=== PATIENT | male | born 1955 | race Caucasian/White ===

== ENCOUNTER → 2016-10-18 | Outpatient (CLI) | payer MEDICARE, BC | LOC: COL.RAD 13:05 | DX: S46.812A Strain of other muscles, fascia and tendons at shoulder and upper arm level, left arm, initial encounter (principal) ==

== ENCOUNTER → 2019-10-27 | Outpatient (CLI) | payer MEDICARE, BC | LOC: COL.RAD 09:19 | DX: K21.9 Gastro-esophageal reflux disease without esophagitis (principal) ==

== ENCOUNTER 2019-11-12 12:03 | Day surgery (SDC) | payer MEDICARE, BC ==
[~2019-11-12] VITALS: Ht 170.2 cm; Wt 92.8 kg
[2019-11-12] MEDS ORDERED: VASOTEC20 MG (12:46)
[2019-11-12] MEDS ORDERED: NORVASC 10MG10 MG PO (12:46)
[2019-11-12] MEDS ORDERED: PROTONIX 40MG T40 MG PO ×2 (12:46→15:43)
--- NOTE | 2019-11-12 12:47 | NUR ---
TO RM AT 1212- CALL LIGHT IN REACH
--- NOTE | 2019-11-12 12:51 | NUR ---
RECHECK O2 AT 94% ON ROOM AIR. HEART TONES REGULAR AT 83
[2019-11-12 15:15] VITALS: BP 84/46; PULSE 73; TEMP 978; TEMP 98.7
--- NOTE | 2019-11-12 15:15 | NUR ---
TO RM 5 PER CART FROM OR. RECEIVED REPORT FROM OR AND SUPERVISOR [employer]. AWAKENS TO VERBAL STIMULATION AND FALLS BACK TO SLEE. 02 AT 3L PER NC WITH STATS AT 95%. NO SIGNS OF DISTRESS
[2019-11-12 15:20] VITALS: BP 97/61; PULSE 74
--- NOTE | 2019-11-12 15:20 | NUR ---
02 SAT 97% ON 3L MORE AWAKE AND RECEIVED WATER. PATIENT ASKING QUESTIONS ABOUT PROCEDURE AND RESULTS. DR TIMMONS CALLED SISTER
[2019-11-12 15:30] VITALS: BP 119/70; PULSE 72
--- NOTE | 2019-11-12 15:30 | NUR ---
TOLERATED WELL, REFUSED ANYTHING TO EAT AT THIS TIME. PATIENT ASKING WHEN HE CAN GO HOME
[2019-11-12 15:45] VITALS: BP 97/70; PULSE 70
--- NOTE | 2019-11-12 15:45 | NUR ---
NO CHANGES RESTING QUIETLY
[2019-11-12 16:00] VITALS: BP 112/65; PULSE 60
--- NOTE | 2019-11-12 16:15 | NUR ---
RECEIVED DISCHARGE INSTRUCTIONS AND VERBALIZED UNDERSTANDING. DISCONTINUED IV AND INT
--- NOTE | 2019-11-12 16:20 | NUR ---
PATIENT GETTING DRESSED AND SISTER CALLED FOR RIDE HOME
--- NOTE | 2019-11-12 16:35 | NUR ---
DISCHARGED PER WC BY NURSING STAFF TO PRIVATE CAR IN CARE OF SISTER MANNIE.
== END 2019-11-12 16:45 | disposition home or self-care (01) ==
LOC: SDCO 12:03
DX: K21.9 Gastro-esophageal reflux disease without esophagitis (principal); K29.50 Unspecified chronic gastritis without bleeding; K44.9 Diaphragmatic hernia without obstruction or gangrene; J43.9 Emphysema, unspecified; Z79.899 Other long term (current) drug therapy; Z87.891 Personal history of nicotine dependence; I10 Essential (primary) hypertension; F32.9 Major depressive disorder, single episode, unspecified; Z80.42 Family history of malignant neoplasm of prostate; Z80.0 Family history of malignant neoplasm of digestive organs
CPT/HCPCS: J2704; J7120

== ENCOUNTER → 2020-03-22 | Outpatient (CLI) | payer BC, MEDICARE ==
[~2020-03-22] MED LIST: NORVASC 10MG10 MG PO; PROTONIX 40MG T40 MG PO; VASOTEC20 MG
== END ==
LOC: COL.PUL 03-03 08:00
DX: J44.9 Chronic obstructive pulmonary disease, unspecified (principal); R10.84 Generalized abdominal pain; Z87.891 Personal history of nicotine dependence

== ENCOUNTER 2020-06-28 11:07 | Day surgery (SDC) | payer MEDICARE, BC ==
[~2020-06-28] VITALS: Ht 170.2 cm; Wt 91.6 kg
[2020-06-28 17:23] VITALS: BP 123/94; PULSE 68; TEMP 97.7
[2020-06-28 17:36] VITALS: BP 139/87; PULSE 77
--- NOTE | 2020-06-28 17:37 | NUR ---
Patient currently resting in bed, call light in reach and is sipping on water at this time. He is on a clear liquid diet and patient is tolerating it well. Patient is burping as well. Patient denies questions at this time.
[2020-06-28 17:52] VITALS: BP 124/74; PULSE 76
[2020-06-28 18:07] VITALS: BP 96/70; PULSE 81
--- NOTE | 2020-06-28 18:46 | NUR ---
Patient resting in bed, call light in reach and on a clear liquid diet. He is tolerating water well, but still having some nausea. He wanted to wait on supper at this time. He was given his scheduled Tylenol at 5 PM. Currently his pain level is at a 4/10. Will continue to monitor.
[2020-06-28 19:07] VITALS: BP 134/75; PULSE 82
--- NOTE | 2020-06-28 21:58 | NUR ---
PATIENT VOIDED ABOUT 20 TO 25 ML URINE, REPORTS UNABLE TO VOID MORE, BLADDER SCAN RESULTED IN 642 ML LEFT IN BLADDER. REPORTS SOME DISCOMFORT WITH PALPATION OF BLADDER AREA.
--- NOTE | 2020-06-28 22:20 | NUR ---
DR JUNIOR CALLED REGARDING URINARY RETENTION. ORDERS GIVEN TO PLACE RAY TO DD UNTIL PATIENT IS SEEN IN AM.
[2020-06-28 23:10] VITALS: BP 135/81; PULSE 74; TEMP 97.9
[2020-06-29 05:01] VITALS: BP 120/67; PULSE 70; TEMP 97.9
[2020-06-29 07:02] LABS: BASO % 0.1 % (0.0-2.0); GRAN # 8.5 (1.4-6.5); GRAN % 84.7 % (42.2-75.2); HEMATOCRIT 39.4 % (42.0-52.0); HEMOGLOBIN 13.2 g/dl (13.5-18.0); LYMPH # 0.8 (1.2-3.4); LYMPH % 8.3 % (20.0-51.0); MEAN CELL VOLUME 93 fl (80.0-100.0); MEAN CORPUSCULAR HEMOGLOBIN 31 pg (27.0-31.0); MEAN CORPUSCULAR HGB CONC 34 g/dl (33.0-37.0); MEAN PLATELET VOLUME 9.4 fl (7.4-10.4); MONO # 0.7 (0.1-0.6); MONO % 6.6 % (1.7-9.3); PLATELET COUNT 218 K/mm3 (130-400); RED BLOOD COUNT 4.25 M/mm3 (4.20-5.60); REDCELL DISTRIBUTION WIDTH-CV 12.8 % (11.5-14.5)
[2020-06-29 07:15] LABS: CALCIUM 8.3 mg/dL (8.4-10.2); CREATININE, serum 0.85 (0.66-1.25); MAGNESIUM 2.1 mg/dL (1.6-2.3); PHOSPHOROUS 3.2 mg/dL (2.5-4.5); POTASSIUM 4.3 mmol/L (3.4-5.0)
--- NOTE | 2020-06-29 07:30 | NUR ---
CHANGE OF SHIFT REPORT GIVEN TO DAY SHIFT NURSELURDES.
[2020-06-29] MEDS ORDERED: PROAIR HFA0.09 MG/AC IH (08:27)
[2020-06-29] MEDS ORDERED: YUPELRI175 MCG/3 IH (08:30)
--- NOTE | 2020-06-29 08:30 | NUR ---
Patient doing well. He refused his blood pressure medications, reports his pressures are lower than normal. He tolerated a clear liquid breakfast tray, but reports his may have had it too fast. He was up to the bathroom & has passed flatus.
[2020-06-29 09:10] VITALS: BP 128/79; PULSE 85; TEMP 97.9
[2020-06-29 11:41] VITALS: BP 147/77; PULSE 72; TEMP 98
[2020-06-29] MEDS ORDERED: ULTRAM 50MG TAB50 MG PO (12:03)
[2020-06-29] MEDS ORDERED: ROXICODONE 55 MG/TAB PO (12:03)
[2020-06-29] MEDS ORDERED: NEURONTIN100 MG/CAP PO (12:04)
--- NOTE | 2020-06-29 14:32 | NUR ---
Initial visit; Patient thanked Data Control Assistant for looking in on him and visiting. Data Control Assistant wished him God's blessings and good health.
--- NOTE | 2020-06-29 15:15 | NUR ---
Patient ready for discharge. Patient has done well today. He tolerated morales removal & voided on his own without any problems. had rounded & orders obtained. Patient given scripts for roxicodone & ultram. Gabapentin scripts was sent to pharmacy of choice, We reviewed med list & medication safety. We discussed incision care & activty & diet restrictions extensivly. Patient verbalized understanding. Patient wheeled out with all belongings. His sister taking him home.
[2020-06-29 15:58] VITALS: BP 178/75; PULSE 101; TEMP 98.4
== END 2020-06-29 17:08 | disposition home or self-care (01) ==
LOC: SDCO 11:07 → SURG 18:41 → SDCO 06-29 17:08
PROVIDERS: Surgery
DX: K21.00 Gastro-esophageal reflux disease with esophagitis, without bleeding (principal); K44.9 Diaphragmatic hernia without obstruction or gangrene; K81.9 Cholecystitis, unspecified; Q44.0 Agenesis, aplasia and hypoplasia of gallbladder; K42.9 Umbilical hernia without obstruction or gangrene; J43.9 Emphysema, unspecified; I10 Essential (primary) hypertension; Z20.828 Contact with and (suspected) exposure to other viral communicable diseases; Z80.0 Family history of malignant neoplasm of digestive organs; Z80.42 Family history of malignant neoplasm of prostate; Z79.01 Long term (current) use of anticoagulants; Z79.899 Other long term (current) drug therapy
CPT/HCPCS: OP; A4314; J0690; J1100; J1650; J1885; J2175; J2405; J2550; J2704; J3010; J7120

== ENCOUNTER → 2024-03-10 | Outpatient (CLI) | payer MEDICARE, BC ==
[~2024-03-10] MED LIST changes: +BREZTRI AEROS10.7 GM IH; +CARAFATE 1GM1 G PO; +MOTRIN 600600 MG/TAB PO; +NEURONTIN100 MG/CAP PO; +PROAIR HFA0.09 MG/AC IH; +ROXICODONE 55 MG/TAB PO; +ULTRAM 50MG TAB50 MG PO; +YUPELRI175 MCG/3 IH
== END ==
LOC: COL.RAD 07:26
DX: K21.00 Gastro-esophageal reflux disease with esophagitis, without bleeding (principal)
CPT/HCPCS: A9541-JZ